=== PATIENT | male | born 1980 | race Caucasian/White ===

== ENCOUNTER 2017-12-02 23:50 | Emergency (ER) | payer OTHER ==
[~2017-12-02] VITALS: Ht 175.3 cm; Wt 81.7 kg
[2017-12-03] MEDS ORDERED: ACETAMINOP160 MG/52 PO (00:03)
[2017-12-03] MEDS ORDERED: AZITHROMYCIN500 MG PO (03:09)
[2017-12-03] MEDS ORDERED: NORCO 5-325 TA1 EACH PO (03:13)
== END 2017-12-03 03:30 | disposition home or self-care (01) ==
LOC: ED 23:50
DX: J18.9 Pneumonia, unspecified organism (principal); F17.200 Nicotine dependence, unspecified, uncomplicated
CPT/HCPCS: 71046; 80053; 83605; 85025; 87040; 96365; 96375; 99283; J0456; J0696; J2270; J2405; J7030

== ENCOUNTER 2018-05-06 17:49 | Emergency (ER) | payer SELFPAY ==
[~2018-05-06] VITALS: Ht 175.3 cm; Wt 81.7 kg
[~2018-05-06 17:49] MED LIST: ACETAMINOP160 MG/52 PO; AZITHROMYCIN500 MG PO; NORCO 5-325 TA1 EACH PO
[2018-05-06] MEDS ORDERED: NORCO 5-325 TA1 EACH PO (18:35)
== END 2018-05-06 18:43 | disposition home or self-care (01) ==
LOC: ED 17:49
PROC: 0RSKXZZ Reposition Left Shoulder Joint, External Approach (ICD-10-PCS; principal; 2018-05-06)
DX: S43.005A Unspecified dislocation of left shoulder joint, initial encounter (principal); X58.XXXA Exposure to other specified factors, initial encounter; F17.200 Nicotine dependence, unspecified, uncomplicated
CPT/HCPCS: 23650; 73030; 99283

== ENCOUNTER 2018-12-05 14:11 | Emergency (ER) | payer SELFPAY ==
[~2018-12-05] VITALS: Ht 175.3 cm; Wt 81.7 kg
[2018-12-05] MEDS ORDERED: NORCO 5-325 TA1 EACH PO (16:59)
[2018-12-05] MEDS ORDERED: KETOROLAC TROME10 MG PO (16:59)
== END 2018-12-05 17:07 | disposition home or self-care (01) ==
LOC: ED 14:11
DX: S22.42XA Multiple fractures of ribs, left side, initial encounter for closed fracture (principal); W11.XXXA Fall on and from ladder, initial encounter; F17.200 Nicotine dependence, unspecified, uncomplicated
CPT/HCPCS: 71101; 99283-25

== ENCOUNTER 2024-07-10 15:19 | Emergency (ER) | payer SELFPAY ==
[~2024-07-10] VITALS: Ht 175.3 cm; Wt 112.3 kg
[~2024-07-10 15:19] MED LIST changes: +CYCLOBENZAPRINE10 MG PO; +KETOROLAC TROME10 MG PO; +PREDNISONE20 MG PO
[2024-07-10 15:52] LABS: BASOPHILS 0.8 % (0-2); EOSINOPHILS 4.8 % (0-6); HEMATOCRIT 48.2 % (35.0-50.0); HEMOGLOBIN 16.1 g/dL (12.0-18.0); LYMPHOCYTES 31.3 % (24-44); MCH 29.6 (27-36); MCHC 33.3 g/dl (30-36); MCV 88.8 fl (81-99); NEUTROPHILS 56.1 % (39-80); PLATELET COUNT 262 K/uL (140-440); RBC 5.43 M/ul (4.3-5.7); RDW 13.1 (10.5-15.0)
[2024-07-10 16:06] LABS: ALBUMIN 4.1 g/dL (3.4-5.0); ALBUMIN/GLOBULIN RATIO 1.21 (1.1-2.4); ANION GAP 11.9 (7-21); BILIRUBIN, TOTAL 0.3 ng/dL (0.2-1.0); BUN/CREATININE RATIO 21.15 (6.0-28.6); CALCIUM 9.6 mg/dL (8.5-10.1); CREATININE, SERUM 1.04 mg/dL (0.70-1.30); MAGNESIUM 1.9 mg/dL (1.8-2.4); POTASSIUM 3.9 mmol/L (3.5-5.1); PROTEIN, TOTAL 7.5 g/dL (6.4-8.2)
[2024-07-10 18:25] VITALS: BP 133/96
--- NOTE | 2024-07-10 21:46 | EKG ---
[facility] [address] [facility] [place] [address] Signed Sinus rhythm with marked sinus arrhythmia Otherwise normal ECG No previous ECGs available Confirmed by Iris Grimes MD () on 07/10/2024 9:46:18 PM Electronically Signed By: IRIS GRIMES MD 07/10/24 214 PATIENT NAME: VIVIAN THOMAS Electrocardiogram DATE OF : 76 PHYSICIAN: IRIS GRIMES MD REPORT #: [id number] REPORT IS CONFIDENTIAL AND NOT TO BE RELEASED WITHOUT AUTHORIZATION
== END 2024-07-10 18:30 | disposition home or self-care (01) ==
LOC: ED 15:19
PROVIDERS: Emergency Medicine
DX: R07.89 Other chest pain (principal); F17.200 Nicotine dependence, unspecified, uncomplicated
CPT/HCPCS: 36415; 70450; 71045; 80053; 83735; 84484; 85025; 85379; 93005; 93010; 99285-25

== ENCOUNTER 2025-05-18 06:56 | Emergency (ER) | payer OTHER ==
[~2025-05-18] VITALS: Ht 175.3 cm; Wt 113.5 kg
[2025-05-18] MEDS ORDERED: IRBESARTAN150 MG PO (07:09)
[2025-05-18] MEDS ORDERED: AMOX TR-K CLV1 EAC1 PO (07:37)
[2025-05-18 07:43] VITALS: BP 152/100
== END 2025-05-18 07:44 | disposition home or self-care (01) ==
LOC: ED 06:56
DX: S61.412A Laceration without foreign body of left hand, initial encounter (principal); L08.9 Local infection of the skin and subcutaneous tissue, unspecified; W26.0XXA Contact with knife, initial encounter; F17.200 Nicotine dependence, unspecified, uncomplicated
CPT/HCPCS: 99283

== ENCOUNTER 2025-07-17 20:51 | Emergency (ER) | payer OTHER ==
[~2025-07-17] VITALS: Ht 175.3 cm; Wt 113.5 kg
[~2025-07-17 20:51] MED LIST changes: +AMOX TR-K CLV1 EAC1 PO; +IRBESARTAN150 MG PO
[2025-07-17] MEDS ORDERED: MORPHINE SULFATE 10 MG/ML VIAL IM ONE (21:15)
[2025-07-17] MEDS ORDERED: HYDROCODON-ACE1 EA10 PO (21:58)
[2025-07-17] MEDS ORDERED: HYDROCODONE BIT/ACETAMINOPHEN 5/325 MG 1 TAB HOME.PACK PO ONE (22:00)
[2025-07-17 22:22] VITALS: BP 168/94
== END 2025-07-17 22:23 | disposition home or self-care (01) ==
LOC: ED 20:51
DX: S22.32XA Fracture of one rib, left side, initial encounter for closed fracture (principal); F17.200 Nicotine dependence, unspecified, uncomplicated; Z79.899 Other long term (current) drug therapy; W19.XXXA Unspecified fall, initial encounter
CPT/HCPCS: 71250; 94667; 96372; 99283-25; A9270; J2270